=== PATIENT | female | born 1955 | race Caucasian/White ===

== ENCOUNTER 2017-02-03 00:38 | Emergency (ER) | payer MEDICAID ==
[~2017-02-03] VITALS: Ht 167.6 cm; Wt 91.4 kg
[~2017-02-03 00:38] MED LIST: DAPA1TAB PO; FENO1TAB46 PO; HYDR-3516 PO; OMEP40CA2 PO
[2017-02-03 00:50] VITALS: BP 135/67; PULSE 91; RESP 16; TEMP 97.9; O2SAT 98
[2017-02-03] MEDS ORDERED: SITA25 PO (01:13)
[2017-02-03] MEDS ORDERED: KETOROLAC TROMETHAMINE 30 MG/ML (IVP) VIAL IV PUSH ONE (01:30)
[2017-02-03] MEDS ORDERED: CLINDAMYCIN INJ 600 MG in SODIUM CHLORIDE 0.9% INJ 100 ML IV ONE (01:30)
--- NOTE | 2017-02-03 01:34 | PD ---
HPI Chief Complaint: Edema Time Seen by Provider: 01:18 Travel History International Travel<30 days: No Contact w/Intl Traveler<30days: No Traveled to known affect area: No History of Present Illness HPI 61yo F with PMH of DM, chronic back pain on hydrocodone presents to the ED with c/o redness in right leg since last night. Pt had fell a few days ago and has skin tears in bilateral lower legs and pain in right thumb. Denies any fever, chest pain, sob, n/v, abdominal pain, focal weakness or numbness. Pt able to walk. States he had some oozing from right calf yesterday. PFSH Past Medical History Cancer: Yes (skin) Cerebrovascular Accident: Yes Diabetes: Yes Patient Takes Glucophage: No ?: Not Past Surgical History Hysterectomy: Yes (PARTIAL) Social History Alcohol Use: No Tobacco Use: Yes Substance Use: No Allergies-Medications (Allergen,Severity, Reaction): Coded Allergies: Penicillins (Verified Allergy, Intermediate, 02/03/17) amoxicillin (Verified Allergy, Intermediate, 02/03/17) Uncoded Allergies: Percentil trees (Allergy, Intermediate, Rash, 05/11/15) Reported Meds & Prescriptions Reported Meds & Active Scripts Active Reported Januvia (Sitagliptin Phosphate) 25 Mg Tab 25 Mg PO DAILY Hydrocodone-Acetaminophen 5-325 mg Tab 1 Tab PO Q6H PRN Omeprazole 40 Mg Cap 40 Mg PO DAILY Fenofibrate 40 Mg Tab 40 Mg PO DAILY Review of Systems Except as stated in HPI: all other systems reviewed are Neg Physical Exam Narrative GENERAL: 61yo F not in distress. SKIN: Focused skin assessment warm/dry. HEAD: Atraumatic. Normocephalic. EYES: Pupils equal and round. No scleral icterus. No injection or drainage. CARDIOVASCULAR: Regular rate and rhythm. No murmur appreciated. RESPIRATORY: No accessory muscle use. Clear to auscultation. Breath sounds equal bilaterally. GASTROINTESTINAL: Abdomen soft, non-tender, nondistended. MUSCULOSKELETAL: RLE: +1cm round abscess that has drained. No fluctuance. + Scab and erythema distal tib/fib. DP 2+. Sensation intact. FROM in right knee and ankle. LLE; +skin tear distal tibia 2cm. No edema or erythema. Right hand: No open wound. Mild ttp thumb. Sensation intact. Able to flex and extend digits. NEUROLOGICAL: Awake and alert. No obvious cranial nerve deficits. Motor grossly within normal limits. Normal speech. PSYCHIATRIC: Appropriate mood and affect; insight and judgment normal. Data Data Last Documented VS Vital Signs Date Time Temp Pulse Resp B/P (MAP) Pulse Ox O2 Delivery O2 Flow Rate FiO2 02/03/17 01:00 98 Room Air 02/03/17 00:50 97.9 91 16 135/67 (89) Orders Orders Tibia/Fibula (Ap/Lat) (02/03/17 ) Tibia/Fibula (Ap/Lat) (02/03/17 ) Hand, Limited (2vws) (02/03/17 ) Complete Blood Count With Diff (02/03/17 01:28) Basic Metabolic Panel (Bmp) (02/03/17 01:28) Clindamycin Inj (Cleocin Inj) (02/03/17 01:30) Ketorolac Inj (Toradol Inj) (02/03/17 01:30) Labs Laboratory Tests Test 02/03/17 02:00 White Blood Count 16.9 TH/MM3 Red Blood Count 4.62 MIL/MM3 Hemoglobin 13.1 GM/DL Hematocrit 38.6 % Mean Corpuscular Volume 83.6 FL Mean Corpuscular Hemoglobin 28.4 PG Mean Corpuscular Hemoglobin Concent 34.0 % Red Cell Distribution Width 13.6 % Platelet Count 266 TH/MM3 Mean Platelet Volume 8.3 FL Neutrophils (%) (Auto) 76.8 % Lymphocytes (%) (Auto) 13.6 % Monocytes (%) (Auto) 6.3 % Eosinophils (%) (Auto) 0.5 % Basophils (%) (Auto) 2.8 % Neutrophils # (Auto) 12.9 TH/MM3 Lymphocytes # (Auto) 2.3 TH/MM3 Monocytes # (Auto) 1.1 TH/MM3 Eosinophils # (Auto) 0.1 TH/MM3 Basophils # (Auto) 0.5 TH/MM3 CBC Comment DIFF FINAL Differential Comment Blood Urea Nitrogen 15 MG/DL Creatinine 0.89 MG/DL Random Glucose 271 MG/DL Calcium Level 9.0 MG/DL Sodium Level 134 MEQ/L Potassium Level 3.7 MEQ/L Chloride Level 99 MEQ/L Carbon Dioxide Level 27.8 MEQ/L Anion Gap 7 MEQ/L Estimat Glomerular Filtration Rate 64 ML/MIN MDM Medical Decision Making Medical Screen Exam Complete: Yes Emergency Medical Condition: Yes Differential Diagnosis Cellulitis vs. contusion vs. fracture Narrative Course 61yo F with right lower leg cellulitis. No fever here. Labs reviewed, leukocytosis at 16.9. Glucose is elevated at 271. No increased anion gap. Normal CO2. States her PMD started her on januvia and she has close follow up for it. Xray right hand unremarkable. Xray right tib/fib showed superficial edema. Xray left tib/fib unremarkable. Pt given toradol and clindamycin IV. Pt is well appearing and tolerating PO. Will try outpatient therapy first. Return precautions given. Diagnosis Primary Impression: Cellulitis Qualified Codes: L03.115 - Cellulitis of right lower limb Patient Instructions: General Instructions Departure Forms: Tests/Procedures Additional Instructions: Please follow up with your primary care physician in 2 days for wound check. Return to the ED if you have fever, vomiting, worsening pain or redness while on antibiotics. Med/Other Pt SpecificInfo: Prescription(s) given Scripts Clindamycin (Clindamycin) 300 Mg Cap 300 MG PO TID for Infection, #21 CAP 0 Refills Prov: Idalia Masters DO 02/03/17 Disposition: 01 DISCHARGE HOME Condition: Stable Idalia Masters DO Feb 03, 2017 01:34
--- NOTE | 2017-02-03 01:55 | RADRPT ---
EXAM DATE/TIME: 02/03/2017 01:35 [facility] COMPARISON: No previous studies available for comparison. INDICATIONS : Right distal tibia/fibula pain with redness. MEDICAL HISTORY : None. SURGICAL HISTORY : ORIF left hip ENCOUNTER: Initial ACUITY: 1 day PAIN SCORE: 8/10 LOCATION: Right distal tibia/fibula FINDINGS: Two view examination of the right tibia demonstrates no evidence of fracture or dislocation. Bony mi neralization is normal. There is edema within the subcutaneous fat over the mid and lower calf. CONCLUSION: Superficial edema. Fernando Esqueda MD on February 03, 2017 at 1:53 Board Certified Radiologist. This report was verified electronically.
--- NOTE | 2017-02-03 01:56 | RADRPT ---
EXAM DATE/TIME: 02/03/2017 01:35 [facility] COMPARISON: No previous studies available for comparison. INDICATIONS : Right hand, first digit pain post fall. MEDICAL HISTORY : None. SURGICAL HISTORY : ORIF left hip ENCOUNTER: Initial ACUITY: 1 day PAIN SCORE: 5/10 LOCATION: Right upper extremity FINDINGS: Two view examination of the right hand demonstrates no soft tissue swelling, dislocation, or fracture . The joint spaces are maintained. Bony mineralization is normal. CONCLUSION: Unremarkable limited examination of the right hand. Fernando Esqueda MD on February 03, 2017 at 1:55 Board Certified Radiologist. This report was verified electronically.
--- NOTE | 2017-02-03 01:57 | RADRPT ---
EXAM DATE/TIME: 02/03/2017 01:35 [facility] COMPARISON: No previous studies available for comparison. INDICATIONS : Left distal tibia/fibula pain with redness. MEDICAL HISTORY : None. SURGICAL HISTORY : ORIF left hip ENCOUNTER: Initial ACUITY: 1 day PAIN SCORE: 8/10 LOCATION: Left distal tibia/fibula FINDINGS: Two view examination of the left tibia demonstrates no evidence of fracture or dislocation. Bony min eralization is normal. The soft tissue structures are intact. CONCLUSION: Unremarkable examination of the left tibia. Fernando Esqueda MD on February 03, 2017 at 1:55 Board Certified Radiologist. This report was verified electronically.
[2017-02-03 02:13] LABS: AUTOMATED NEUTROPHIL # 12.9 TH/MM3 (1.8-7.7); BASOPHIL # 0.5 TH/MM3 (0-0.2); BASOPHIL % 2.8 % (0.0-2.0); EOSINOPHIL # 0.1 TH/MM3 (0-0.4); EOSINOPHIL % 0.5 % (0.0-4.0); HEMATOCRIT 38.6 % (35.0-46.0); LYMPH % 13.6 % (9.0-44.0); LYMPHOCYTE # 2.3 TH/MM3 (1.0-4.8); MEAN CELL VOLUME 83.6 FL (80.0-100.0); MEAN CORPUSCULAR HEMOGLOBIN 28.4 PG (27.0-34.0); MONO % 6.3 % (0.0-8.0); NEUT % 76.8 % (16.0-70.0); PLATELET COUNT 266 TH/MM3 (150-450); RED BLOOD COUNT 4.62 MIL/MM3 (4.00-5.30); RED CELL DISTRIBUTION WIDTH 13.6 % (11.6-17.2); WHITE BLOOD COUNT 16.9 TH/MM3 (4.0-11.0)
[2017-02-03 02:14] LABS: HEMO FLAGS DIFF FINAL
[2017-02-03 02:22] LABS: POTASSIUM 3.7 MEQ/L (3.5-5.1)
[2017-02-03 02:25] LABS: BICARBONATE 27.8 MEQ/L (21.0-32.0)
[2017-02-03] MEDS ORDERED: CLIN1CAP6 PO (03:18)
[2017-02-03] MEDS ORDERED: TETANUS/DIPHTHERIA TOXOID ADULT 0.5 ML VIAL IM ONE (03:30)
[2017-02-03 03:40] VITALS: BP 158/78
== END 2017-02-03 03:43 | disposition home or self-care (01) ==
LOC: PHED 00:38
DX: L03.115 Cellulitis of right lower limb (principal); D72.829 Elevated white blood cell count, unspecified; E11.8 Type 2 diabetes mellitus with unspecified complications; Z23 Encounter for immunization
CPT/HCPCS: 73120; 73590; 80048; 85025; 90471; 90714; 96365; 96375; 99284; J1885